=== PATIENT | female | born 1990 | race Caucasian/White ===

== ENCOUNTER → 2017-08-16 | Day surgery (SDC) | payer OTHER ==
[~2017-08-16] MED LIST: ACETAMINOPHEN 500 MG TAB ONE; ACETAMINOPHEN 500 MG TAB PO ONE; ACETAMINOPHEN 500 MG TAB PO PRN; ALBUTEROL 3 ML DEYVIAL IH PRN; BUPIVACAINE/EPI 0.5% 30 ML SDV ONE; DEXAMETHASONE 4 MG/ML VIAL IVP PRN; DEXAMETHASONE 4 MG/ML VIAL ONE; DIAZEPAM 5 MG/ML 1 ML SYR IVP PRN; GABAPENTIN 400 MG CAP PO ONE; GLYCOPYRROLATE 0.2 MG/1 ML VIAL ONE; HYDROCODONE/APAP 5/325 TAB ONE; HYDROCODONE/APAP 5/325 TAB PO PRN; KETOROLAC 30 MG/1 ML SDV ONE; LIDOCAINE 1% 2 ML INJ ID PRN; LIDOCAINE 2% 5 ML SDV ONE; LR 1,000 ML IV ONE; LR 500 ML IV PRN; MEPERIDINE 25 MG/ML SYR IVP PRN; MEPERIDINE 25 MG/ML SYR ONE; METOCLOPRAMIDE 10 MG/2 ML VIAL IVP PRN; MIDAZOLAM 2 MG/2 ML VIAL ONE; NALOXONE HCL 0.4 MG/ML INJ IVP PRN; ONDANSETRON 4 MG/2 ML VIAL IVP PRN; ONDANSETRON 4 MG/2 ML VIAL ONE; PHENAZOPYRIDINE HCL 200 MG TAB PO ONE; PROMETHAZINE HCL 25 MG/ML INJ IVP PRN; PROPOFOL/EMULSION 500 MG/50 ML BOTTLE IV ONE; RANITIDINE 50 MG/2 ML VIAL ONE; ROCURONIUM 50 MG/5 ML VIAL ONE; SCOPOLAMINE HYDROBROMIDE 1 MG/3 DAYS PATCH TD ONE; SUGAMMADEX SODIUM 200 MG/2 ML VIAL IVP ONE; ceFAZolin 2 GM/SWFI 2 GM/20 ML SYR IVP ONE; epHEDrine SULFATE 10 MG/ML SYR ONE; fentaNYL 100 MCG/2 ML INJ IVP PRN; fentaNYL 100 MCG/2 ML INJ ONE; oxyCODONE IR 5 MG TAB PO PRN
--- NOTE | 2017-08-16 07:28 | PDGENHP ---
History and Physical History and Physical: Assessment and Plan: 1. Endometriosis of pelvic peritoneum Ruben has laparoscopic proven endometriosis which has not been treated surgically. She has failed medical management. We reviewed all conservative and surgical options. At the end of our discussion she is interested in surgical excision. The risks benefits and alternatives were reviewed and informed consent was obtained. 2. Dysmenorrhea 3. Dyschezia 4. Dyspareunia, female Subjective: Patient ID: Ruben Scott is a 27 y.o. female who presents to [facility] for endometriosis. MAURA Miranda is a 27-year-old 0 woman who presents to discuss endometriosis. She has a long history of pelvic pain and dysmenorrhea. Her cycles are regular but occur more than 35 days apart. She will typically bleed about 5 days. 3 days are heavy when she will have to change a tampon and pad about 3 times per day. She has pain on a daily basis. This is a pelvic pressure which is worse in the right lower quadrant. The pain worsens during her menses. She has cramping before bleeding and when she ovulates. The first 2 days of her flow because the worst pain of each month. Additionally she has dyspareunia and dyschezia. The dyschezia is a shooting type pain. She has constipation and at times finds it difficult to empty her stool. She uses Linzess occasionally as well as magnesium. She was living in [place]. She eventually underwent a laparoscopy in mid 2016. This showed multiple areas of endometriosis which was worse in the right posterior cul-de-sac right uterosacral ligament and ovarian fossa. Apparently the right ovary was adherent with in a peritoneal window. No surgical treatment was performed. She then was on Lupron for 6 months which provided minimal benefit. She and her are considering but not for several years. CURRENT MEDICATIONS: Current Outpatient Prescriptions Medication Sig LACTOBACILLUS ACIDOPHILUS (PROBIOTIC PO) linaclotide (LINZESS) 145 mcg capsule PSYLLIUM SEED, WITH DEXTROSE, (FIBER PO) UNABLE TO FIND daily. Med Name: Magnesium/L-Glutamine supplement No current facility-administered medications for this visit. ALLERGIES: Wheat I have reviewed, verified and agree with the past medical, surgical, , family, social and ROS history as documented by the RN today. Review of Systems Objective: Vital Signs: Visit Vitals BP 100/72 Pulse 65 Temp 36.8 C (98.2 F) (Temporal Artery) Resp 12 Ht 1.702 m (5' 7") Wt 58.1 kg (128 lb) SpO2 96% BMI 20.05 kg/m Physical Exam Gen: This is an alert, well developed woman in no distress. Neuro: She moves all extremities. Psych: She is appropriate, oriented, with normal affect. Neck: No thyroid enlargement, adenopathy, or tenderness. Lungs: Clear to ascultation, no wheezes or rales. Heart: Regular rate and rhythm without obvious murmurs. Abdomen: Soft, non-tender, without guarding, rebound, or masses. Extremities: No edema or cyanosis. Pelvic: Normal external genitalia. Non-gaping introitus, vagina without discharge, adequately estrogenized, no significant prolapse. Cervix without lesions or discharge. Uterus normal sized. Adnexa tender without enlargement. The uterus has reduced mobility. She is tender around the cervix and most notably in the posterior cul-de-sac. No obvious nodularity or masses are palpable. Procedures DATA: I have reviewed patient's outside medical records. Summary findings include as noted above. TIME/COUNSELING: I personally spent a total of 50 minutes. Of that 35 minutes was counseling/ coordination of patient's care. See my note above for details. Obie Salazar MD
--- NOTE | 2017-08-16 10:12 | PDHPUP ---
History & Physical Update H&P update statement: This history and physical update is based on an assessment of the patient which was completed after admission or registration (within 24 hours), but prior to the surgery/procedure. H&P update: H&P reviewed & patient examined, no change in patient's condition since H&P completed
--- NOTE | 2017-08-16 11:18 | PDANEPAE ---
ANE Past Medical History - Cardiovascular History Hx Hypertension: No Hx Arrhythmias: No Hx Chest Pain: No Hx Coronary Artery / Peripheral Vascular Disease: No Hx CHF / Valvular Disease: No Hx Palpitations: No - Pulmonary History Hx COPD: No Hx Asthma/Reactive Airway Disease: No Hx Recent Upper Respiratory Infection: No Hx Oxygen in Use at Home: No Hx Sleep Apnea: No Sleep Apnea Screening Result - Last Documented: Negative - Neurologic History Hx Cerebrovascular Accident: No Hx Seizures: No Hx Dementia: No - Endocrine History Hx Diabetes: No - Renal History Hx Renal Disorders: No - Liver History Hx Hepatic Disorders: No - Neurological & Psychiatric Hx Hx Neurological and Psychiatric Disorders: Yes Neurological / Psychiatric History Comment: depression,anxiety - Cancer History Hx Cancer: No - Congenital Disorder History Hx Congenital Disorders: No - GI History Hx Gastrointestinal Disorders: Yes Gastrointestinal History Comment: IBS - Other Health History Other Health History: SPOT ON TOP OF HEAD ITCHY - Chronic Pain History Chronic Pain: Yes (SCOLLIOSIS) - Surgical History Prior Surgeries: diajohn adam 2015 CAREY Review of Systems Review of Systems: - Exercise capacity METS (RN): 5 METS ANE Patient History - Allergies Allergies/Adverse Reactions: No Known Allergies Allergy (Verified 08/14/17 16:25) - Home Medications Home Medications: Herbals/Supplements -Info Only 08/14/17 [Last Taken 08/13/17] Ibuprofen 08/14/17 [Last Taken 08/02/17] Linzess 08/16/17 [Last Taken 08/13/17] - NPO status NPO Since - Liquids (Date): 08/16/17 NPO Since - Liquids (Time): 07:15 NPO Since - Solids (Date): 08/15/17 NPO Since - Solids (Time): 20:00 - Smoking Hx Smoking Status: Never smoked - Family Anes Hx Family Hx Anesthesia Complications: uncle has issues waking after anesthesia ANE Labs/Vital Signs - Vital Signs Blood Pressure: 104/63 Heart Rate: 67 Respiratory Rate: 16 O2 Sat (%): 97 Height: 170.18 cm Weight: 58.967 kg ANE Physical Exam - Airway Neck exam: FROM Mouth exam: normal dental/mouth exam - Pulmonary Pulmonary: no respiratory distress, no rales or rhonchi - Cardiovascular Cardiovascular: regular rate and rhythym, no murmur, rub, or gallop - ASA Status ASA Status: I ANE Anesthesia Plan Anesthesia Plan: general endotracheal anesthesia
--- NOTE | 2017-08-16 13:03 | POSTANESTH ---
Post Anesthetic Evaluation Cardiovascular Status: Normal, Stable Respiratory Status: Normal, Stable Level of Consciousness/Mental Status: Mildly Sleepy, Arousable Pain Control: Adequate, Prn Tx Ordered Nausea/Vomiting Control: Adequate, Prn Tx Ordered Complications Possibly Related to Anesthesia: None Noted
--- NOTE | 2017-08-16 13:06 | GOP ---
[f rep st] OPERATIVE REPORT DATE OF OPERATION: 08/16/2017 SURGEON: Obie Salazar MD ENVIRONMENTAL CONSTRUCTION ENGINEER: Karissa Han CFA. ANESTHESIA: General. PREOPERATIVE DIAGNOSIS: 1. Endometriosis. 2. Cyclic pelvic pain. 3. Dysmenorrhea. POSTOPERATIVE DIAGNOSIS: 1. Endometriosis. 2. Cyclic pelvic pain. 3. Dysmenorrhea. PROCEDURE PERFORMED: 1. Robotic excision of endometriosis in posterior cul-de-sac and bilateral ovarian fossae. 2. Bilateral ureterolysis. 3. Bilateral ovarian pexy. 4. Excision of right adnexal mass. FINDINGS: The patient had endometriosis in the posterior cul-de-sac especially medial to the left ut erosacral ligament. There were several lesions in both ovarian fossae overlying both ureters. There was a lesion in the right anterior cul-de-sac as well as the far left anterior cul-de-sac. There we re multiple lesions on the serosal surface of the uterus as well as the ovary. She had a right parat ubal cyst. There was no evidence of endometriosis on the bowel, appendix, liver, gallbladder, stomac h or upper abdominal bowel. SPECIMENS: 1. Pelvic peritoneum with endometriosis. 1. Right adnexal mass. 2. ESTIMATED BLOOD LOSS: Scant. DESCRIPTION OF PROCEDURE: The patient was taken to the operating room where she was identified. Gen eral anesthesia was administered and found to be adequate. She was placed in the lithotomy position and prepared and draped in normal sterile fashion. A Hulka tenaculum was placed in her uterus for manipulation. A Aguilar catheter was then placed. A 1 cm intraumbilical incision was made with a scalpel. The Veress needle with the CO2 gas flowing w as advanced into the peritoneal cavity. The abdomen was then insufflated with carbon dioxide gas. T he 12 mm trocar followed by the laparoscope were then inserted. The upper abdomen was unremarkable. There was no evidence of endometriosis on either diaphragm or upper abdominal structures. Two lateral ports were placed in the right and one in the left under direct visualization. She then was placed in Trendelenburg position and the da Olivia robot docked on the left side. The instruments were then brought into the abdominal cavity under direct visualization. The right adnexal mass was excised. The lesions in the anterior cul-de-sac were then excised. The posterior cul-de-sac periton eum from the distal rectum up to the cervix and laterally to include both uterosacral ligaments was c ompletely excised. A bilateral ureterolysis was required. The peritoneum of the pelvic brims were i ncised. The ureters were gently dissected free. The ureters were lateralized off the overlying shani toneum and endometriosis down to where they crossed underneath the uterine arteries. Once this was a ccomplished, the entire ovarian fossa peritoneum with endometriosis was completely excised. All spec imens were then sent to Pathology for permanent section. A bilateral ovarian pexy was performed given her cyclic pelvic pain. The ovaries were attached to th e ipsilateral round ligaments near the internal inguinal ring. The pelvis was irrigated with sterile saline and hemostasis was present. The robot was then undocked . The fascia was closed with 0 Vicryl, skin with 4-0 Monocryl and surgical adhesive. Anesthesia was reversed and the patient taken to the PACU awake, in stable condition. COMPLICATIONS: None. DISPOSITION: Patient stable to PACU. /[id number]/MODL
[2017-08-16 16:30] VITALS: BP 107/57
== END | disposition home or self-care (01) ==
LOC: FSGY 08:59
PROVIDERS: ATTEND Obstetrics & Gynecology
DX: N80.3 Endometriosis of pelvic peritoneum (principal); N94.10 Unspecified dyspareunia; K59.00 Constipation, unspecified; F41.8 Other specified anxiety disorders; K58.9 Irritable bowel syndrome, unspecified; M41.9 Scoliosis, unspecified
CPT/HCPCS: J0690; J1100; J1885; J2175; J2250; J2405; J2704; J2780; J3010; J3360